=== PATIENT | female | born 1930 | race Caucasian/White ===

== ENCOUNTER 2018-02-23 21:04 | Outpatient (CLI) | payer MEDICARE | END 2018-02-23 21:05 | disposition critical access hospital (66) | LOC: EMS 21:04 | PROVIDERS: ATTEND Surgery | DX: M25.551 Pain in right hip (principal); M79.604 Pain in right leg; W19.XXXA Unspecified fall, initial encounter; Y92.003 Bedroom of unspecified non-institutional (private) residence as the place of occurrence of the external cause | CPT/HCPCS: A0425; A0427 ==

== ENCOUNTER 2018-02-23 21:34 | Inpatient (IN) | payer MEDICARE ==
[2018-02-23] MEDS ORDERED: ACETAMINOPHEN 325 MG TABLET PO PRN (22:19)
[2018-02-23] MEDS ORDERED: SODIUM CHLORIDE FLUSH 0.9% 10 ML SYRINGE IVP PRN (22:19)
[2018-02-23] MEDS ORDERED: ZOLPIDEM 5 MG TABLET PO PRN (22:19)
[2018-02-23] MEDS ORDERED: PROCHLORPERAZINE 10 MG/2 ML VIAL IVP PRN (22:19)
[2018-02-23] MEDS ORDERED: ONDANSETRON 4 MG/2 ML VIAL IVP PRN (22:19)
--- NOTE | 2018-02-23 23:27 | HISTORY & PHYSICAL EXAMINATION ---
Chief Complaint - Chief Complaint Chief Complaint: Right hip pain History of Present Illness - Admitted From Admitted From:: Emergency department - History Obtained From Records Reviewed: Yes History obtained from: Patient Exam Limitations: Very limited range of motion of right hip - History of Present Illness HPI Comment/Other: Patient is a very pleasant 87-year-old female with a past medical history significant for TIA and osteoporosis who presented to the emergency department with a chief complaint of right hip pain. The patient states that she was in her bedroom trying to close a window when she turned to her right and the next thing she knows she had fallen onto her right hip. She states that she immediately felt excruciating pain in her right hip and was unable to get up. The patient states she lives alone but has a life alert around her neck and she pressed the life alert button. She states that she has had falls in the past including a fall in October when she fell in the yard while she was doing yard work and landed on her buttocks. The patient has had multiple surgeries in the past for previous fractures. She has had ankle surgery, left elbow surgery and surgery on her right arm for a humeral fracture. The patient states that she is a smoker and smokes about 8 cigarettes a day. She denies any worsening shortness of breath recently, chest pain, orthopnea or any increased lower extremity swelling. She does not take any prescription medications. She does not believe she has any kidney issues. Patient denies any headaches, dizziness, blurred vision, runny nose, sore throat , nasal congestion, fevers, chills, difficulty swallowing, chest pain, shortness of air, orthopnea, PND, increased lower extremity swelling, abdominal pain, nausea, vomiting, diarrhea, constipation, urinary urgency, urinary frequency, dysuria, back pain, neck stiffness, changes in her appetite, recent unintentional weight loss, skin changes, skin rashes, night sweats, hair loss, polyuria, polydipsia, or any focal neurologic deficits. On presentation to the emergency department the patient was afebrile and very hypertensive and is significant amount of pain. In route to the emergency department the patient had received a dose of fentanyl and on presentation her oxygen saturation was in the low 90s therefore she was placed on 2 L of oxygen but did not appear to be in any respiratory distress. The patient did undergo routine lab work which revealed a creatinine of 1.1 without any previous baseline and a glucose of 167 without any previous baseline. The patient's right leg appeared to be externally rotated and shortened concerning for hip fracture therefore a x-ray of the right hip was ordered by the emergency room physician. The x-ray of the right hip revealed a right intertrochanteric fracture. The patient also underwent a chest x-ray which did not show any acute infiltrates but did show increased lung volumes consistent with COPD. The patient also underwent a right knee x-ray which showed osteopenia and mild degenerative changes but no acute fracture. The emergency room physician spoke with the orthopedic surgeon supervisor inspection and testing who asked that the hospitalist team admit the patient and that he would consult for surgical repair of the right hip. Patient was admitted to the medical rm. 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 She lives alone. She has 4 children and 1 of her daughters lives nearby in [place], [place]. She is originally from [place] and moved here to [facility] 5 years ago. She has been twice and her second 8 years ago so she is now . She is fully independent and performs all of her activities of daily living independently. She has had recent falls and states that she is having trouble with her balance. She has a walker at home but rarely uses it. She states that she smoked from her early 20s up until the time she was about 59 years old and at that time she smoked about half a pack to a pack a day but then quit for 21 years. She states that she started smoking again 8 years ago and now smokes about 8 cigarettes a day. She states that she drinks wine every Saturday. She denies any illicit drug use. - POLST Patient has POLST: Yes POLST Status: DNR Meds/Allgy - Home Medications Home Medications: Ambulatory Orders Medication Instructions Recorded Confirmed Calcium Carbonate [Calcium] 600 mg PO 02/23/18 Cholecalciferol (Vitamin D3) 2,000 unit PO 02/23/18 [Vitamin D] - Allergies Allergies/Adverse Reactions: Allergies Allergy/AdvReac Type Severity Reaction Status Date / Time No Known Drug Allergies Allergy Verified 02/23/18 21:41 Review of Systems - Other Findings Other Findings: A comprehensive review of systems was performed the pertinent positives and negatives are stated above in the HPI and the remainder of the review of systems is negative. Exam - Vital Signs Reviewed Vital Signs: Yes Vital Signs: Vital Signs x48h Temp Pulse Resp BP Pulse Ox 02/23/18 21:36 36.0 C L 67 16 186/120 H 90 L - Physical Exam General Appearance: positive: No acute distress, Alert Eyes Bilateral: positive: Normal inspection, PERRL, EOMI, No lid inflammation, Conjunctivae nml, No scleral icterus ENT: positive: ENT inspection nml, Pharynx nml, Dry mucous membranes. negative : Purulent nasal drainage, Pharyngeal erythema, Oral lesions Neck: positive: Nml inspection, Thyroid nml, No JVD, Trachea midline. negative : Thyromegaly, Lymphadenopathy (R), Lymphadenopathy (L), Carotid bruit, Swelling /bruising Respiratory: positive: Chest non-tender, No respiratory distress, Wheezes ( Scattered wheezes). negative: Rales, Rhonchi Cardiovascular: positive: Regular rate & rhythm, No murmur, No gallop Peripheral Pulses: positive: 2+ Abdomen: positive: Non-tender, No organomegaly, Nml bowel sounds, No distention Back: positive: Nml inspection. negative: CVA tenderness (R), CVA tenderness (L ) Skin: positive: Color nml, No rash, Warm, Dry. negative: Cyanosis, Diaphoresis , Pallor, Skin rash Extremities: positive: No pedal edema, Other (Decreased range of motion around the right hip. Patient's right lower extremity is externally rotated and shortened.) Neurologic/Psychiatric: positive: Oriented x3, CN's nml (2-12), Motor nml, Sensation nml, Mood/affect nml Conclusion/Plan - Problem List (1) Fracture of right hip Conclusion/Plan: Patient presented to the emergency department after a fall on her right hip. She presented with a externally rotated and shortened right hip. X-ray of the right hip revealed a right intertrochanteric fracture. The patient's revised cardiac risk index risk for preoperative risk shows that risk of major cardiac event is 0.4% Plan: Admit patient to medical rm N.p.o. after midnight for surgical repair of hip fracture Orthopedic consult Pain control with IV narcotics IVFs Qualifiers: Encounter type: initial encounter Fracture type: closed Qualified Code(s) : S72.001A - Fracture of unspecified part of neck of right femur, initial encounter for closed fracture (2) Tobacco abuse Conclusion/Plan: Patient has a history of tobacco abuse. She continues to smoke 8 cigarettes a day. Appears on the chest x-ray the patient may have some COPD. The patient denies any shortness of breath but the patient's daughter does state that she is noticed that the patient does have wheezing and a chronic cough. Patient does have some scattered wheezes on examination. Plan: Nicotine patch while patient is hospitalized Patient will need incentive spirometry to help avoid development of pneumonia We will also place the patient on DuoNeb treatments as needed while she is hospitalized. Patient was counseled on adverse effects of smoking and the need to quit. (3) Osteoporosis Conclusion/Plan: Patient has history of osteoporosis with a bone density scan in 2016 showing the fracture risk to be high. The patient is on calcium and vitamin D but no other medications for osteoporosis. Patient will be continued on her vitamin D and calcium and was advised not to smoke cigarettes. She will need to follow-up with her PCP for any further treatment of osteoporosis. Qualifiers: Osteoporosis type: unspecified Presence of current pathological fracture: unspecified Qualified Code(s): M81.0 - Age-related osteoporosis without current pathological fracture (4) Hypertension Conclusion/Plan: On presentation to the emergency department the patient was hypertensive with blood pressure of 186/120. This is likely secondary to pain as the patient was in significant distress when she arrived. Once patient's pain was better controlled patient's blood pressure was down to 127/97. We will need to continue to monitor the patient's blood pressure to ensure that she does not have significant hypertension. If the patient's blood pressure remains high we will need to start a antihypertensive medication. In the meantime we will try to control the patient's pain and monitor her blood pressure. Qualifiers: Hypertension type: unspecified Qualified Code(s): I10 - Essential (primary ) hypertension (5) Hyperglycemia Conclusion/Plan: On presentation to the emergency department the patient's blood glucose was elevated at 167. We did order a hemoglobin A1c which appears to be 6.1. The patient is prediabetic at this time but does not require any treatment with insulin. - Lab Results Lab results reviewed: Yes Fish Bones: 02/23/18 22:50 02/23/18 22:50 Other Lab Results: Laboratory Results WBC 9.9 x10^3/uL (4.8-10.8) 02/23/18 22:50 RBC 4.93 10^6/uL (4.20-5.40) 02/23/18 22:50 Hgb 14.7 g/dL (12.0-16.0) 02/23/18 22:50 Hct 45.0 % (37.0-47.0) 02/23/18 22:50 MCV 91.1 fL (81.0-99.0) 02/23/18 22:50 MCH 29.8 pg (27.0-31.0) 02/23/18 22:50 MCHC 32.7 g/dL (32.0-36.0) 02/23/18 22:50 RDW 14.9 % (12.0-15.0) 02/23/18 22:50 Plt Count 162 10^3/uL (130-450) 02/23/18 22:50 MPV 9.5 fL (7.9-10.8) 02/23/18 22:50 Neut # (Auto) 7.9 10^3/uL (1.5-6.6) H 02/23/18 22:50 Lymph # (Auto) 1.4 10^3/uL (1.5-3.5) L 02/23/18 22:50 Slope # (Auto) 0.5 10^3/uL (0.0-1.0) 02/23/18 22:50 Eos # (Auto) 0.1 10^3/uL (0.0-0.7) 02/23/18 22:50 Baso # (Auto) 0.1 10^3/uL (0.0-0.1) 02/23/18 22:50 Absolute Nucleated RBC 0.01 x10^3/uL 02/23/18 22:50 Nucleated RBC % 0.1 /100WBC 02/23/18 22:50 PT 11.4 secs (9.9-12.6) 02/23/18 22:53 INR 1.0 (0.8-1.2) 02/23/18 22:53 APTT 28.7 secs (24.9-33.3) 02/23/18 22:53 Sodium 137 mmol/L (135-145) 02/23/18 22:50 Potassium 4.1 mmol/L (3.5-5.0) 02/23/18 22:50 Chloride 100 mmol/L (101-111) L 02/23/18 22:50 Carbon Dioxide 26 mmol/L (21-32) 02/23/18 22:50 Anion Gap 11.0 (6-13) 02/23/18 22:50 BUN 25 mg/dL (6-20) H 02/23/18 22:50 Creatinine 1.1 mg/dL (0.4-1.0) H 02/23/18 22:50 Estimated GFR (MDRD) 47 (>89) L 02/23/18 22:50 Glucose 167 mg/dL (70-100) H 02/23/18 22:50 Glycated Hemoglobin 6.1 % (4.6-6.2) 02/23/18 22:53 Estim Average Glucose 128 (70-100) H 02/23/18 22:53 Calcium 8.9 mg/dL (8.5-10.3) 02/23/18 22:50 Total Bilirubin 0.5 mg/dL (0.2-1.0) 02/23/18 22:50 AST 26 IU/L (10-42) 02/23/18 22:50 ALT 17 IU/L (10-60) 02/23/18 22:50 Alkaline Phosphatase 83 IU/L (42-121) 02/23/18 22:50 Total Protein 7.3 g/dL (6.7-8.2) 02/23/18 22:50 Albumin 3.7 g/dL (3.2-5.5) 02/23/18 22:50 Globulin 3.6 g/dL (2.1-4.2) 02/23/18 22:50 Albumin/Globulin Ratio 1.0 (1.0-2.2) 02/23/18 22:50 Lipase 31 U/L (22-51) 02/23/18 22:50 Blood Type O POSITIVE 02/24/18 01:29 Antibody Screen NEGATIVE 02/24/18 01:29 - Diagnostic Imaging Results Diagnostic Imaging Results: positive: Final report reviewed, Read independently Diagnostic Imaging Results Comments: EXAM: [id number] ([id number]) Procedure Date: 02/24/2018 Accession Number: [id number] / [id number] Procedure: XR - Knee 2 View RT CPT Code: FULL RESULT: EXAM: RIGHT KNEE RADIOGRAPHY EXAM DATE: 02/24/2018 12:47 AM. CLINICAL HISTORY: Right knee pain, post fall. COMPARISON: None. TECHNIQUE: 2 views. FINDINGS: Bones: Osteopenia. No acute fracture seen. Joints: No dislocation. Mild 3 compartment degenerative joint disease. No joint effusion identified. Soft Tissues: Mild soft tissue swelling. Vascular calcifications. IMPRESSION: 1. Osteopenia and mild degenerative changes. 2. No acute fracture or dislocation seen. X-ray of the right hip shows a intertrochanteric hip fracture Chest x-ray reveals hyperinflation of the lungs consistent with COPD otherwise no acute process is seen - EKG Results EKG Interpreted Independently: Yes Core Measures - Anticipated LOS I expect patient to be DC'd or transferred within 96 hours.: Yes - DVT/VTE - Prophylaxis VTE/DVT Device ordered at admit?: Yes
[2018-02-23 23:30] LABS: HGB - HEMOGLOBIN 14.7 g/dL (12.0-16.0); MEAN CORPUSCULAR HEMOGLOBIN 29.8 pg (27.0-31.0); MEAN CORPUSCULAR HGB CONC 32.7 g/dL (32.0-36.0); MEAN CORPUSCULAR VOLUME 91.1 fL (81.0-99.0); RED BLOOD COUNT 4.93 10^6/uL (4.20-5.40); WHITE BLOOD COUNT 9.9 x10^3/uL (4.8-10.8)
[2018-02-23 23:31] LABS: BASOPHILS # (AUTO) 0.1 10^3/uL (0.0-0.1); BASOPHILS % (AUTO) 0.8 %; EOSINOPHILS # (AUTO) 0.1 10^3/uL (0.0-0.7); EOSINOPHILS % (AUTO) 0.7 %; LYMPHOCYTES # (AUTO) 1.4 10^3/uL (1.5-3.5); LYMPHOCYTES % (AUTO) 14.5 %; MEAN PLATELET VOLUME 9.5 fL (7.9-10.8); MONOCYTES # (AUTO) 0.5 10^3/uL (0.0-1.0); MONOCYTES % (AUTO) 4.9 %; NEUTROPHILS # (AUTO) 7.9 10^3/uL (1.5-6.6); NEUTROPHILS % (AUTO) 79.1 %; PLT - PLATELET COUNT 162 10^3/uL (130-450); RED CELL DISTRIBUTION WIDTH 14.9 % (12.0-15.0)
[2018-02-23] MEDS ORDERED: NICOTINE 14 MG PATCH TOP STA (23:31)
[2018-02-23 23:37] LABS: ALBUMIN 3.7 g/dL (3.2-5.5); BILIRUBIN,TOTAL 0.5 mg/dL (0.2-1.0); CALCIUM 8.9 mg/dL (8.5-10.3); CREATININE 1.1 mg/dL (0.4-1.0); TOTAL PROTEIN 7.3 g/dL (6.7-8.2)
[2018-02-23] MEDS ORDERED: fentaNYL 100 MCG/2 ML VIAL IVP STA (23:42)
[2018-02-23 23:49] LABS: PT - PROTHROMBIN TIME 11.4 secs (9.9-12.6)
--- NOTE | 2018-02-24 00:09 | ED Physician Documentation ---
PD HPI Fall - Stated complaint Stated Complaint: GLF - POSS HIP RIGHT FX - Chief complaint Chief Complaint: Trauma Ext - History obtained from History obtained from: Patient, EMS - History of Present Illness Mechanism of injury: Slipped Fall distance: Standing position Where injury occurred: Home Timing - onset: Today Injury(ies) location: Right Lower Extremity Quality of pain: Pain Associated symptoms: No: LOC, AMS Similar symptoms before: Has not had sx before Recently seen: Not recently seen - Additional information Additional information: Patient is an 87 year old female who was brought in by ems for right sided hip pain after falling. patient states that she was trying to close her blinds and she was walking around the couch and tripped and fell landing on her right hip. Upon initial evaluation in the emergency department patient had severe hip pain and her leg was shortened and externally rotated. Review of Systems Ten Systems: 10 systems reviewed and negative Musculoskeletal: reports: Extremity pain, Joint pain, Extremity swelling, Joint swelling PD PAST MEDICAL HISTORY - Past Medical History Past Medical History: Yes Cardiovascular: None Neuro: TIA : Incontinence Musculoskeletal: Osteoporosis - Past Surgical History Past Surgical History: Yes Ortho: Other - Present Medications Home Medications: Ambulatory Orders Medication Instructions Recorded Confirmed Calcium Carbonate [Calcium] 600 mg PO 02/23/18 Cholecalciferol (Vitamin D3) 2,000 unit PO 02/23/18 [Vitamin D] - Allergies Allergies/Adverse Reactions: Allergies Allergy/AdvReac Type Severity Reaction Status Date / Time No Known Drug Allergies Allergy Verified 02/23/18 21:41 - Social History Does the pt smoke?: No Smoking Status: Never smoker Does the pt drink ETOH?: Yes Substance Use and Type: Marijuana - Immunizations Immunizations are current?: Yes - POLST Patient has POLST: Yes PD ED PE NORMAL - Vitals Vital signs reviewed: Yes - General General: Alert and oriented X 3 - HEENT HEENT: Atraumatic - Cardiac Cardiac: RRR - Abdomen Abdomen: Soft - Neuro Neuro: Alert and oriented X 3, surgical instrument maker 2-12 intact Eye Opening: Spontaneous PD ED PE EXPANDED - General General: Alert, In Pain - Extremities Extremities: Right hip (tenderness over right hip, shortened and externally rotated ) Results - Vitals Vitals: Vital Signs - 24 hr 02/23/18 21:36 Temperature 36.0 C L Heart Rate 67 Respiratory 16 Rate Blood Pressure 186/120 H O2 Saturation 90 L Oxygen O2 Source Room air - Rads (name of study) right hip Radiology: Final report received (intertrochanteric fracture) PD MEDICAL DECISION MAKING - ED course Complexity details: reviewed old records, reviewed results, re-evaluated patient , considered differential, d/w patient ED course: Patient was seen and examined at bedside. Patient was sent for imaging. when patient returned from imaging the results were reviewed. patient had an intertrochanteric fracture. Case was discussed with construction and maintenance inspector orthopedist and hospitalist. patient was to be admitted to hospitalist and orthopedist would consult on the patient. Patient was treated with fentanyl for pain and admitted in stable condition. - Sepsis Event Vital Signs: Vital Signs - 24 hr 02/23/18 21:36 Temperature 36.0 C L Heart Rate 67 Respiratory 16 Rate Blood Pressure 186/120 H O2 Saturation 90 L Oxygen O2 Source Room air Departure - Departure Disposition: [facility] DC/Xfer
[2018-02-24 00:28] LABS: HB2 TOTAL 16.3 g/dL; HEMOGLOBIN A1C 0.7 g/dL; HEMOGLOBIN A1C % 6.1 % (4.6-6.2)
[2018-02-24] MEDS ORDERED: MORPHINE 10 MG/ML VIAL IVP STA (00:51)
--- NOTE | 2018-02-24 01:08 | XRAY Report ---
Procedure Date: 02/24/2018 Accession Number: [id number] / [id number] Procedure: XR - Knee 2 View RT CPT Code: FULL RESULT: EXAM: RIGHT KNEE RADIOGRAPHY EXAM DATE: 02/24/2018 12:47 AM. CLINICAL HISTORY: Right knee pain, post fall. COMPARISON: None. TECHNIQUE: 2 views. FINDINGS: Bones: Osteopenia. No acute fracture seen. Joints: No dislocation. Mild 3 compartment degenerative joint disease. No joint effusion identified. Soft Tissues: Mild soft tissue swelling. Vascular calcifications. IMPRESSION: 1. Osteopenia and mild degenerative changes. 2. No acute fracture or dislocation seen. RADIA
[2018-02-24] MEDS: SODIUM CHLORIDE 0.9% 1,000 ML IV SCH ×3 (02:12→17:54)
[2018-02-24] MEDS: SODIUM CHLORIDE FLUSH 0.9% 10 ML SYRINGE IVP SCH ×3 (02:12→17:54)
[2018-02-24] MEDS ORDERED: IPRATROPIUM/ALBUTEROL 3 ML NEB INH PRN (02:35)
--- NOTE | 2018-02-24 03:23 | XRAY Report ---
Procedure Date: 02/23/2018 Accession Number: [id number] / [id number] Procedure: XR - Hip w/Pelvis 2-3V RT CPT Code: FULL RESULT: EXAM: RIGHT HIP AND PELVIS RADIOGRAPHY EXAM DATE: 02/23/2018 10:19 PM. HISTORY: Right hip pain after injury. COMPARISONS: None. TECHNIQUE: 1 view of the pelvis and 1 view of the hip. FINDINGS: Bones: Osteopenia. Mildly comminuted intertrochanteric right hip fracture. Joints: No dislocation seen. Severe degenerative joint disease in the right hip. Soft Tissues: Vascular calcifications. IMPRESSION: 1. Osteopenia with mildly comminuted intertrochanteric right hip fracture. 2. Severe degenerative joint disease in the right hip. RADIA
--- NOTE | 2018-02-24 03:23 | XRAY Report ---
Procedure Date: 02/23/2018 Accession Number: [id number] / [id number] Procedure: XR - Chest 1 View X-Ray CPT Code: 88365 FULL RESULT: EXAM: CHEST RADIOGRAPHY EXAM DATE: 02/23/2018 10:37 PM. CLINICAL HISTORY: Hip fracture. Preoperative exam for fracture repair. COMPARISON: None. TECHNIQUE: 1 view. FINDINGS: Lungs/Pleura: No alveolar consolidation or pleural effusion seen. No pneumothorax. Mediastinum: Within exam limitations, heart size appears normal. Tortuous atherosclerotic aorta. Other: Osteopenia. Old rib fractures. Severe chronic-appearing deformity in the right shoulder. Degenerative joint disease in the left shoulder. IMPRESSION: 1. No acute cardiopulmonary abnormality. RADIA
[2018-02-24] MEDS: MORPHINE 2 MG/ML SYRINGE IVP PRN ×3 (03:33→09:04)
[2018-02-24 05:59] LABS: INR 1.1 (0.8-1.2); PT - PROTHROMBIN TIME 11.9 secs (9.9-12.6)
[2018-02-24 06:11] LABS: ALBUMIN 3.1 g/dL (3.2-5.5); ALBUMIN/GLOBULIN RATIO 0.9 (1.0-2.2); BILIRUBIN,TOTAL 0.4 mg/dL (0.2-1.0); CALCIUM 8.9 mg/dL (8.5-10.3); CREATININE 1.1 mg/dL (0.4-1.0); MAGNESIUM 1.6 mg/dL (1.7-2.8); PHOSPHORUS 3.3 mg/dL (2.5-4.6); TOTAL PROTEIN 6.5 g/dL (6.7-8.2)
[2018-02-24] MEDS ORDERED: FAMOTIDINE 20 MG TABLET PO SCH (09:00)
[2018-02-24] MEDS ORDERED: FAMOTIDINE 20 MG/50 ML 50 ML IV SCH (09:00)
[2018-02-24] MEDS: POLYETHYLENE GLYCOL 3350 17 GM PACKET PO SCH (09:02)
[2018-02-24] MEDS ORDERED: LACTATED RINGERS 1,000 ML IV ONE ×3 (09:47→11:58)
[2018-02-24] MEDS ORDERED: ceFAZolin 2 GM/50 ML 2 GM/50 ML BAG IV ONE (09:59)
[2018-02-24] MEDS: ceFAZolin 2 GM/50 ML 2 GM/50 ML BAG IV SCH ×2 (10:44→17:54)
[2018-02-24] MEDS ORDERED: ePHEDrine 50 MG/ML AMP IVP ONE (10:48)
[2018-02-24] MEDS ORDERED: ROCURONIUM 50 MG/5 ML VIAL IVP ONE (10:48)
[2018-02-24] MEDS ORDERED: LIDOCAINE-PF 4% 5 ML AMP SUBQ ONE (10:48)
[2018-02-24] MEDS ORDERED: GLYCOPYRROLATE 1 MG/5 ML VIAL IVP ONE (10:48)
[2018-02-24] MEDS ORDERED: MORPHINE 10 MG/ML VIAL IVP ONE (10:48)
[2018-02-24] MEDS ORDERED: ONDANSETRON 4 MG/2 ML VIAL IVP ONE (10:48)
[2018-02-24] MEDS ORDERED: PROPOFOL 200 MG/20 ML VIAL IVP ONE (10:48)
--- NOTE | 2018-02-24 12:00 | CONSULTATION NOTE ---
DATE OF SERVICE: 02/24/2018 Physician: Martin Michel MD CHIEF COMPLAINT: Pain in the right hip, inability to walk. HISTORY OF PRESENT ILLNESS: This 87-year-old woman was standing at a window in her house, turned around suddenly, and lost her balance and fell. She remembers falling through the air and hitting the ground. She was unable to get up and walk after that and was transported to our emergency room, where a diagnosis was made of right intertrochanteric hip fracture, and she has been admitted for that problem. Prior to falling, she was an independent ambulator not requiring the use of any walking aids. ALLERGIES: NONE KNOWN. PAST MEDICAL HISTORY: She had a peptic ulcer in the , and was treated with a medication for 2 weeks, and has not required treatment again. She has a past possible TIA, but with low enough suspicion that she was not put on aspirin. PAST SURGICAL HISTORY Includes: 1. A left elbow ORIF, and then a second left elbow ORIF. 2. Right ankle ORIF with plate and screws. 3. Right shoulder fracture which, was not surgically fixed, but resulted in painfully limited abduction and forward flexion. 4. Appendectomy. 5. Cystoscopy and correction of drainage of ureteropelvic junction stenosis, with no treatment required after that surgery. REVIEW OF SYSTEMS She denies seizure, and she has had episodes of syncope from vagal response when she was frightened of going to the dentist. She had a questionable TIA in the past. CARDIAC: She denies irregular heartbeat, palpitations, valvular heart disease, chest pain on exertion, congestive heart failure, lungs filling with fluid, high blood pressure. PULMONARY: She denies asthma, tuberculosis, pneumonia, or sleep apnea. GASTROINTESTINAL: She denies hepatitis, pancreatitis, colitis. She did have a history of ulcer in the , which required only 2 weeks of treatment, and did not reoccur. 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 She denies kidney failure, kidney stones, or kidney infection. ENDOCRINE: She denies diabetes or thyroid disease. SOCIAL HISTORY: She smokes 1/2 a pack per day since 1999. She did not smoke for 20 years from [id number]. She does not regularly drink alcoholic beverages. She lives by herself in a mobile home, which has a ramp leading up to the door. FAMILY HISTORY: Noncontributory. PHYSICAL EXAMINATION HEENT: Her head is normocephalic, atraumatic. The neck is painlessly supple. HEART: Has a grade II/ systolic murmur best heard in the right upper sternal border. The heart is occasionally irregular. LUNGS: Clear to auscultation, and have normal breath sounds. The abdomen is without tenderness or masses. EXTREMITIES: The right leg has no palpable pulse, but on Doppler, there is a barely audible monophasic dorsalis pedis. The left foot does not have palpable pulses. The right leg is shortened and externally rotated. There is moderate tenderness in her calves. The posterior medial left knee is tender, which prompted a knee x-ray. The wrists and fingers move well. The right shoulder can forward flex to only 60 degrees, and that causes pain. The left shoulder motion is not limited. The right elbow moves normally. The left elbow has a scar extending along the posterior ulna onto the proximal humerus. There is motion of 35 degrees to 120 degrees. The left hip and knee are painless. The feet and ankles are painless to going hand over hand palpation, until I reach the right knee, where there is posterior medial tenderness. X-RAYS The right hip has an intertrochanteric fracture, displaced in varus. The pelvis is otherwise intact. The right hip has diminished joint space and sclerosis of the femoral and acetabular subchondral bones, indicating severe arthritis. The AP and lateral knee x-ray appears normal. LABORATORY DATA: Hemoglobin is 14; platelet count is 160,000; white count less than 10,000 and normal. IMPRESSION: The patient has been evaluated medically, and chest x-ray and EKG were reviewed by the medical doctor. I am not qualified to interpret these studies based on my orthopedic training. Medical doctor has felt the patient is stable for surgical intervention. 1. Right intertrochanteric hip fracture, displaced. 2. Advanced age, elevated blood sugar. PLAN: I explained the risks and benefits of the surgery versus no surgery to the patient and her daughter, including the risk of , stroke, heart attack. I will go ahead with the surgery today, as the patient and her daughter have given consent. TD: 02/24/2018 09:32
--- NOTE | 2018-02-24 12:39 | XRAY Report ---
Procedure Date: 02/24/2018 Accession Number: [id number] / [id number] Procedure: FL - OR C-Arm Procedure CPT Code: FULL RESULT: EXAM: OR C-Arm Procedure DATE: 02/24/2018 12:01 PM CLINICAL HISTORY: RIGHT HIP FRACTURE Please see right hip films same day.
--- NOTE | 2018-02-24 13:01 | OPERATIVE REPORT ---
Operative Report - General Admit Date: 02/23/18 Procedure Date: 02/24/18 Planned Procedure: ORIF right intertrochanteric hip with intramedullary dirk and lag screw Pre-Op Diagnosis: closed right intertrochanteric hip fracture Post Op Diagnosis: same - Procedure Note Anesthesia Technique: General ET tube IV Fluids (mL): 1,500 Estimated Blood Loss (mL): 250 Urine Output (mL): 100 - Other Other Information/Narrative: complications none left OR in stable condition
[2018-02-24] MEDS ORDERED: ACETAMINOPHEN 325 MG TABLET PO PRN (13:24)
[2018-02-24] MEDS ORDERED: ONDANSETRON 4 MG/2 ML VIAL IVP PRN (13:24)
[2018-02-24] MEDS ORDERED: ceFAZolin 2 GM/50 ML 50 ML IV SCH (13:30)
--- NOTE | 2018-02-24 13:58 | OPERATIVE REPORT ---
DATE OF SERVICE: 02/24/2018 Physician: Martin Michel MD PREOPERATIVE DIAGNOSIS: Right intertrochanteric hip fracture. POSTOPERATIVE DIAGNOSIS: Right intertrochanteric hip fracture. PROCEDURE: Open reduction internal fixation of a closed right intertrochanteric hip fracture with an intramedullary dirk and interlocking lag screw and distal locking screw. ANESTHESIA: General by endotracheal tube. SURGEON: Martin Michel MD CARETAKER RESORT: None. ESTIMATED BLOOD LOSS: 250 mL. IV FLUIDS: 1500 lactated Ringer's. URINE OUTPUT: 100 mL. SPECIMENS: None. DRAINS: None. COMPLICATIONS: None; the patient tolerated the procedure well. PROCEDURE DETAILS: This 87-year-old woman had been seen in the emergency room and informed consent given to the patient and her daughter for treatment of a closed right hip intertrochanteric fracture. After the patient was medically cleared, she was brought to the operating room. She was laid in the supine position on the fracture table and general anesthesia was induced. A timeout was held. All present agreed that the patient was as identified on her armband and that the correct site of surgery was the hip, the side of surgery was the right, and the surgery was to be open reduction internal fixation of the right hip. The right leg was placed in traction, and the left leg was held up on the leg barbosa, which was padded. The patient had been administered 2 grams of Ancef just before the start of the operative procedure. The right hip was sterilely prepped, painted, and draped, with the image intensifier sterilely draped. A marking pen was used to chuckie off the level of the greater trochanter tip and the line of the femoral shaft. A 5 cm longitudinal incision was made in the skin and subcutaneous tissue superior to the tip of the trochanter, and the fascia of the gluteus was divided. With the sterile finger, the tip of the trochanter was identified and, with x-ray confirmation on AP and lateral, a guidewire was placed into the proximal femoral shaft through the tip of the greater trochanter. This was used to guide a 15 mm reamer for the proximal end of the nail. The 15 mm diameter reamer was viewed on the image and seen to not fill the canal. The canal was reamed to 14 mm, and a 13 mm distal diameter intramedullary dirk was put into place. The dirk was adjusted for proximal and distal position and anteversion and retroversion. A guidewire was placed in the femoral neck and head using the guide jig attached to the top of the dirk. When satisfactory position was confirmed on x-ray, it was used to measure for depth and the lag screw path was reamed out over the guidewire. The lag screw was screwed up into position, monitoring on image intensifier. When it was in satisfactory position, a proximal x-ray was taken, AP and lateral , and found to be satisfactory. The distal interlocking screw was placed with the guide jig 's help. A 40 mm long, 5 mm cortical distal interlocking screw was screwed through the dirk and femur. AP and lateral images were taken of the assembly proximally and distally and found to be satisfactory. The proximal locking screw was placed down into the superior end of the intramedullary dirk, tightened down and then backed off a quarter of a turn to allow dynamizing of the fracture fragments. The wound was irrigated out. Final hemostasis was obtained with electrocautery. The gluteus fascia was closed with 0 Vicryl and the subcutaneous tissue with 2- 0 subcutaneous. The puncture wounds for the lag screw and distal interlocking screw were closed with angelica. The proximal incision above the greater trochanter was closed with angelica as well. A sterile dressing was placed upon the wound, and the patient awakened and brought from the operating room in good condition. TD: 02/24/2018 13:31 MAGALY
--- NOTE | 2018-02-24 17:05 | PROVIDER PROGRESS NOTE ---
Subjective - Prog Note Date Prog Note Date: 02/24/18 Prog Note Time: 17:00 - Subjective Pt reports feeling: Improved (No chest pain or shortness of breath. Pain controlled.) Current Medications - Current Medications Current Medications: alert and oriented. neurovascular status as pre-op with no palpable pedal pulses. Objective - Vital Signs/Intake & Output Vital Signs: Vital Signs x48h Temp Pulse Resp BP Pulse Ox 02/24/18 15:25 36.3 C L 83 18 110/60 96 02/24/18 13:55 80 15 114/70 95 02/24/18 13:25 85 16 104/66 94 02/24/18 13:19 36.0 C L 86 14 142/74 H 96 02/24/18 12:55 98 02/24/18 12:50 100 02/24/18 12:45 100 02/24/18 12:40 100 02/24/18 12:35 100 02/24/18 12:30 100 02/24/18 12:25 99 Intake & Output: Intake & Output 02/21/18 02/22/18 02/23/18 02/24/18 23:59 23:59 23:59 23:59 Intake Total 1050 Output Total 510 Balance 540 - Objective General Appearance: positive: No acute distress Peripheral Pulses: 0 Dorsalis pedis (R), 0 Dorsalis pedis (L) - Lab Results Fish Bones: 02/23/18 22:50 02/24/18 05:22 Other Labs: Lab Results x24hrs 02/24/18 02/24/18 02/24/18 Range/Units 05:22 05:22 01:29 WBC (4.8-10.8) x10^3/uL RBC (4.20-5.40) 10^6/uL Hgb (12.0-16.0) g/dL Hct (37.0-47.0) % MCV (81.0-99.0) fL MCH (27.0-31.0) pg MCHC (32.0-36.0) g/dL RDW (12.0-15.0) % Plt Count (130-450) 10^3/uL MPV (7.9-10.8) fL Neut # (Auto) (1.5-6.6) 10^3/uL Lymph # (Auto) (1.5-3.5) 10^3/uL [place] # (Auto) (0.0-1.0) 10^3/uL Eos # (Auto) (0.0-0.7) 10^3/uL Baso # (Auto) (0.0-0.1) 10^3/uL Absolute Nucleated RBC x10^3/uL Nucleated RBC % /100WBC PT 11.9 (9.9-12.6) secs INR 1.1 (0.8-1.2) APTT (24.9-33.3) secs Sodium 142 (135-145) mmol/L Potassium 4.5 (3.5-5.0) mmol/L Chloride 108 (101-111) mmol/L Carbon Dioxide 26 (21-32) mmol/L Anion Gap 8.0 (6-13) BUN 26 H (6-20) mg/dL Creatinine 1.1 H (0.4-1.0) mg/dL Estimated GFR (MDRD) 47 L (>89) Glucose 185 H (70-100) mg/dL Glycated Hemoglobin (4.6-6.2) % Estim Average Glucose (70-100) Calcium 8.9 (8.5-10.3) mg/dL Phosphorus 3.3 (2.5-4.6) mg/dL Magnesium 1.6 L (1.7-2.8) mg/dL Total Bilirubin 0.4 (0.2-1.0) mg/dL AST 28 (10-42) IU/L ALT 16 (10-60) IU/L Alkaline Phosphatase 73 (42-121) IU/L Total Protein 6.5 L (6.7-8.2) g/dL Albumin 3.1 L (3.2-5.5) g/dL Globulin 3.4 (2.1-4.2) g/dL Albumin/Globulin Ratio 0.9 L (1.0-2.2) Lipase (22-51) U/L Blood Type O POSITIVE Blood Type Recheck Antibody Screen NEGATIVE 02/23/18 02/23/18 02/23/18 Range/Units 22:53 22:53 22:53 WBC (4.8-10.8) x10^3/uL RBC (4.20-5.40) 10^6/uL Hgb (12.0-16.0) g/dL Hct (37.0-47.0) % MCV (81.0-99.0) fL MCH (27.0-31.0) pg MCHC (32.0-36.0) g/dL RDW (12.0-15.0) % Plt Count (130-450) 10^3/uL MPV (7.9-10.8) fL Neut # (Auto) (1.5-6.6) 10^3/uL Lymph # (Auto) (1.5-3.5) 10^3/uL [place] # (Auto) (0.0-1.0) 10^3/uL Eos # (Auto) (0.0-0.7) 10^3/uL Baso # (Auto) (0.0-0.1) 10^3/uL Absolute Nucleated RBC x10^3/uL Nucleated RBC % /100WBC PT 11.4 (9.9-12.6) secs INR 1.0 (0.8-1.2) APTT 28.7 (24.9-33.3) secs Sodium (135-145) mmol/L Potassium (3.5-5.0) mmol/L Chloride (101-111) mmol/L Carbon Dioxide (21-32) mmol/L Anion Gap (6-13) BUN (6-20) mg/dL Creatinine (0.4-1.0) mg/dL Estimated GFR (MDRD) (>89) Glucose (70-100) mg/dL Glycated Hemoglobin 6.1 (4.6-6.2) % Estim Average Glucose 128 H (70-100) Calcium (8.5-10.3) mg/dL Phosphorus (2.5-4.6) mg/dL Magnesium (1.7-2.8) mg/dL Total Bilirubin (0.2-1.0) mg/dL AST (10-42) IU/L ALT (10-60) IU/L Alkaline Phosphatase (42-121) IU/L Total Protein (6.7-8.2) g/dL Albumin (3.2-5.5) g/dL Globulin (2.1-4.2) g/dL Albumin/Globulin Ratio (1.0-2.2) Lipase (22-51) U/L Blood Type Blood Type Recheck O POSITIVE Antibody Screen 02/23/18 02/23/18 Range/Units 22:50 22:50 WBC 9.9 (4.8-10.8) x10^3/uL RBC 4.93 (4.20-5.40) 10^6/uL Hgb 14.7 (12.0-16.0) g/dL Hct 45.0 (37.0-47.0) % MCV 91.1 (81.0-99.0) fL MCH 29.8 (27.0-31.0) pg MCHC 32.7 (32.0-36.0) g/dL RDW 14.9 (12.0-15.0) % Plt Count 162 (130-450) 10^3/uL MPV 9.5 (7.9-10.8) fL Neut # (Auto) 7.9 H (1.5-6.6) 10^3/uL Lymph # (Auto) 1.4 L (1.5-3.5) 10^3/uL [place] # (Auto) 0.5 (0.0-1.0) 10^3/uL Eos # (Auto) 0.1 (0.0-0.7) 10^3/uL Baso # (Auto) 0.1 (0.0-0.1) 10^3/uL Absolute Nucleated RBC 0.01 x10^3/uL Nucleated RBC % 0.1 /100WBC PT (9.9-12.6) secs INR (0.8-1.2) APTT (24.9-33.3) secs Sodium 137 (135-145) mmol/L Potassium 4.1 (3.5-5.0) mmol/L Chloride 100 L (101-111) mmol/L Carbon Dioxide 26 (21-32) mmol/L Anion Gap 11.0 (6-13) BUN 25 H (6-20) mg/dL Creatinine 1.1 H (0.4-1.0) mg/dL Estimated GFR (MDRD) 47 L (>89) Glucose 167 H (70-100) mg/dL Glycated Hemoglobin (4.6-6.2) % Estim Average Glucose (70-100) Calcium 8.9 (8.5-10.3) mg/dL Phosphorus (2.5-4.6) mg/dL Magnesium (1.7-2.8) mg/dL Total Bilirubin 0.5 (0.2-1.0) mg/dL AST 26 (10-42) IU/L ALT 17 (10-60) IU/L Alkaline Phosphatase 83 (42-121) IU/L Total Protein 7.3 (6.7-8.2) g/dL Albumin 3.7 (3.2-5.5) g/dL Globulin 3.6 (2.1-4.2) g/dL Albumin/Globulin Ratio 1.0 (1.0-2.2) Lipase 31 (22-51) U/L Blood Type Blood Type Recheck Antibody Screen - Diagnostic Imaging Diagnostic Imaging Results: positive: Final report reviewed (I reviewed the final images taken with the flouroscope in the OR)
[2018-02-25] MEDS: SODIUM CHLORIDE FLUSH 0.9% 10 ML SYRINGE IVP SCH ×3 (01:32→16:50)
[2018-02-25] MEDS: ceFAZolin 2 GM/50 ML 2 GM/50 ML BAG IV SCH (02:02)
[2018-02-25] MEDS: SODIUM CHLORIDE 0.9% 1,000 ML IV SCH ×3 (04:15→20:15)
[2018-02-25 05:17] LABS: BASOPHILS # (AUTO) 0.1 10^3/uL (0.0-0.1); BASOPHILS % (AUTO) 0.7 %; EOSINOPHILS # (AUTO) 0.1 10^3/uL (0.0-0.7); HGB - HEMOGLOBIN 10.6 g/dL (12.0-16.0); LYMPHOCYTES # (AUTO) 1.6 10^3/uL (1.5-3.5); LYMPHOCYTES % (AUTO) 17.4 %; MEAN CORPUSCULAR HEMOGLOBIN 30.4 pg (27.0-31.0); MEAN CORPUSCULAR HGB CONC 32.9 g/dL (32.0-36.0); MEAN CORPUSCULAR VOLUME 92.4 fL (81.0-99.0); MEAN PLATELET VOLUME 9.4 fL (7.9-10.8); MONOCYTES % (AUTO) 10.7 %; NEUTROPHILS # (AUTO) 6.3 10^3/uL (1.5-6.6); NEUTROPHILS % (AUTO) 70.2 %; PLT - PLATELET COUNT 133 10^3/uL (130-450); RED BLOOD COUNT 3.48 10^6/uL (4.20-5.40); RED CELL DISTRIBUTION WIDTH 14.7 % (12.0-15.0)
[2018-02-25 05:25] LABS: ALBUMIN 2.6 g/dL (3.2-5.5); ALBUMIN/GLOBULIN RATIO 0.9 (1.0-2.2); BILIRUBIN,TOTAL 0.2 mg/dL (0.2-1.0); CREATININE 0.9 mg/dL (0.4-1.0); MAGNESIUM 1.6 mg/dL (1.7-2.8); PHOSPHORUS 3.5 mg/dL (2.5-4.6); TOTAL PROTEIN 5.4 g/dL (6.7-8.2)
[2018-02-25] MEDS: ACETAMINOPHEN 1,000 MG/100 ML 100 ML IV PRN (06:22)
--- NOTE | 2018-02-25 07:52 | PROVIDER PROGRESS NOTE ---
Subjective - Prog Note Date Prog Note Date: 02/25/18 Prog Note Time: 07:40 - Subjective Pt reports feeling: Improved (No chest pain. Hip pain is controlled at rest.) Objective - Vital Signs/Intake & Output Vital Signs: Vital Signs x48h Temp Pulse Resp BP Pulse Ox 02/25/18 05:14 36.9 C 88 18 122/56 L 95 02/25/18 00:00 36.7 C 93 18 106/61 94 Intake & Output: Intake & Output 02/22/18 02/23/18 02/24/18 02/25/18 23:59 23:59 23:59 23:59 Intake Total 1450 1100 Output Total 835 375 Balance 615 725 - Objective General Appearance: positive: No acute distress, Alert Peripheral Pulses: 0 Dorsalis pedis (R), 0 Dorsalis pedis (L) Extremities: positive: No pedal edema. negative: Calf tenderness - Lab Results Fish Bones: 02/25/18 04:56 02/25/18 04:56 Other Labs: Lab Results x24hrs 02/25/18 02/25/18 02/23/18 Range/Units 04:56 04:56 22:53 WBC 9.0 (4.8-10.8) x10^3/uL RBC 3.48 L (4.20-5.40) 10^6/uL Hgb 10.6 L (12.0-16.0) g/dL Hct 32.1 L (37.0-47.0) % MCV 92.4 (81.0-99.0) fL MCH 30.4 (27.0-31.0) pg MCHC 32.9 (32.0-36.0) g/dL RDW 14.7 (12.0-15.0) % Plt Count 133 (130-450) 10^3/uL MPV 9.4 (7.9-10.8) fL Neut # (Auto) 6.3 (1.5-6.6) 10^3/uL Lymph # (Auto) 1.6 (1.5-3.5) 10^3/uL [place] # (Auto) 1.0 (0.0-1.0) 10^3/uL Eos # (Auto) 0.1 (0.0-0.7) 10^3/uL Baso # (Auto) 0.1 (0.0-0.1) 10^3/uL Absolute Nucleated RBC 0.00 x10^3/uL Nucleated RBC % 0.0 /100WBC Sodium 140 (135-145) mmol/L Potassium 4.6 (3.5-5.0) mmol/L Chloride 108 (101-111) mmol/L Carbon Dioxide 26 (21-32) mmol/L Anion Gap 6.0 (6-13) BUN 23 H (6-20) mg/dL Creatinine 0.9 (0.4-1.0) mg/dL Estimated GFR (MDRD) 59 L (>89) Glucose 148 H (70-100) mg/dL Calcium 8.0 L (8.5-10.3) mg/dL Phosphorus 3.5 (2.5-4.6) mg/dL Magnesium 1.6 L (1.7-2.8) mg/dL Total Bilirubin 0.2 (0.2-1.0) mg/dL AST 21 (10-42) IU/L ALT 12 (10-60) IU/L Alkaline Phosphatase 66 (42-121) IU/L Total Protein 5.4 L (6.7-8.2) g/dL Albumin 2.6 L (3.2-5.5) g/dL Globulin 2.8 (2.1-4.2) g/dL Albumin/Globulin Ratio 0.9 L (1.0-2.2) Blood Type Recheck O POSITIVE - Diagnostic Imaging Diagnostic Imaging Results: positive: Read independently
[2018-02-25] MEDS ORDERED: MAGNESIUM SULFATE 1 GM in SODIUM CHLORIDE 0.9% 50 ML IV ONE (08:17)
[2018-02-25] MEDS: FAMOTIDINE 20 MG TABLET PO SCH (09:10)
[2018-02-25] MEDS: NICOTINE 14 MG PATCH TOP SCH (09:10)
[2018-02-25] MEDS: ENOXAPARIN 30 MG/0.3 ML SYRINGE SUBQ SCH (09:10)
[2018-02-25] MEDS: POLYETHYLENE GLYCOL 3350 17 GM PACKET PO SCH (09:11)
--- NOTE | 2018-02-25 09:22 | XRAY Report ---
Procedure Date: 02/24/2018 Accession Number: [id number] / [id number] Procedure: XR - Hip w/Pelvis 1V RT CPT Code: FULL RESULT: EXAM: Hip w/Pelvis 1V RT DATE: 02/24/2018 12:01 PM CLINICAL HISTORY: RIGHT HIP FRACTURE COMPARISON: 02/23/2018 TECHNIQUE: Intraoperative images of the right hip. FINDINGS: 55 seconds of fluoroscopy was provided to Dr. Gilmore. 5 spot images were obtained. Intraoperative imaging demonstrates dynamic compression screw and short IM dirk fixation of the right intertrochanteric fracture. IMPRESSION: Intraoperative imaging of right hip fracture fixation. RADIA
[2018-02-25] MEDS: MORPHINE 2 MG/ML SYRINGE IVP PRN ×2 (11:11→16:49)
[2018-02-25] MEDS: oxyCODONE 5 MG TABLET PO PRN ×2 (11:37→19:46)
--- NOTE | 2018-02-25 14:39 | PROVIDER PROGRESS NOTE ---
Subjective - Prog Note Date Prog Note Date: 02/25/18 - Subjective Pt reports feeling: Improved Subjective: pt report no pain when at rest, report pain 5/10 at movement of right low extremity. Pt has no other complaints. Current Medications - Current Medications Current Medications: Active Medications Albuterol/Ipratropium (Duoneb) 3 ml INH Q4HR PRN PRN Reason: Wheezing Enoxaparin Sodium (Lovenox) 30 mg SUBQ DAILY [facility] Last Admin: 02/25/18 09:10 Dose: 30 mg Famotidine (Pepcid) 20 mg PO DAILY [facility] Last Admin: 02/25/18 09:10 Dose: 20 mg Acetaminophen (Ofirmev) 100 mls @ 400 mls/hr IV Q6HR PRN PRN Reason: PAIN Last Infusion: 02/25/18 06:37 Dose: Infused Sodium Chloride (Normal Saline 0.9%) 1,000 mls @ 75 mls/hr IV .[id number] [facility] Last Admin: 02/25/18 09:09 Dose: Not Given Morphine Sulfate (Morphine) 2 mg IVP Q2H PRN PRN Reason: Pain 8 to 10 Last Admin: 02/25/18 11:11 Dose: 2 mg Nicotine (Nicoderm) 1 patch TOP DAILY [facility] Last Admin: 02/25/18 09:10 Dose: 1 patch Ondansetron HCl (Zofran Inj) 4 mg IVP Q6HR PRN PRN Reason: Nausea / Vomiting Oxycodone HCl (Roxicodone) 5 mg PO Q4HR PRN PRN Reason: Pain 5 to 7 Oxycodone HCl (Roxicodone) 10 mg PO Q4HR PRN PRN Reason: Pain 8 to 10 Last Admin: 02/25/18 11:37 Dose: 10 mg Polyethylene Glycol (Miralax) 17 gm PO DAILY [facility] Last Admin: 02/25/18 09:11 Dose: 17 gm Sodium Chloride (Normal Saline Flush 0.9%) 10 ml IVP 0100,0900,1700 [facility] Last Admin: 02/25/18 09:11 Dose: Not Given Sodium Chloride (Normal Saline Flush 0.9%) 10 ml IVP PRN PRN PRN Reason: NEEDED PER PROVIDER ORDERS Zolpidem Tartrate (Ambien) 5 mg PO QPM PRN PRN Reason: Insomnia Calcium Carbonate [Calcium] 600 mg PO BID 02/23/18 Cholecalciferol (Vitamin D3) [Vitamin D] 2,000 unit PO BID 02/23/18 Naproxen Sodium [Aleve] 220 mg PO DAILY 02/25/18 [place]-3 Fatty Acids/Fish Oil [[place]-3 Fish Oil 1,000 mg Sfgl] 1 each PO BID 11/10 Objective - Vital Signs/Intake & Output Reviewed Vital Signs: Yes Vital Signs: Vital Signs x48h Temp Pulse Resp BP Pulse Ox 02/25/18 11:18 80 16 106/50 L 94 02/25/18 08:30 37.2 C 86 17 101/68 92 Intake & Output: Intake & Output 02/22/18 02/23/18 02/24/18 02/25/18 23:59 23:59 23:59 23:59 Intake Total 1450 2142 Output Total 835 655 Balance 615 1487 - Objective General Appearance: positive: No acute distress, Alert. negative: Lethargic Eyes Bilateral: positive: Normal inspection, PERRL, No lid inflammation, Conjunctivae nml ENT: positive: ENT inspection nml, Pharynx nml, No signs of dehydration. negative: Purulent nasal drainage, Pharyngeal erythema, Oral lesions Neck: positive: Nml inspection, Thyroid nml, No JVD, Trachea midline. negative : Thyromegaly, Stiff neck, Carotid bruit, Swelling/bruising, Tracheal deviation Respiratory: positive: Chest non-tender, No respiratory distress, Breath sounds nml. negative: Wheezes, Rales, Rhonchi Cardiovascular: positive: Regular rate & rhythm, No murmur, No gallop. negative : Irregularly irregular, Extrasystoles, Tachycardia, Bradycardia, JVD present, Systolic murmur Peripheral Pulses: 2+ Radial (R), 2+ Radial (L), 2+ Dorsalis pedis (R), 2+ Dorsalis pedis (L) Abdomen: positive: Non-tender, No organomegaly, Nml bowel sounds, No distention. negative: Tenderness, Guarding, Rebound Back: positive: Nml inspection. negative: CVA tenderness (R), CVA tenderness (L ) Skin: positive: Color nml, No rash, Warm, Dry. negative: Cyanosis, Diaphoresis , Pallor Extremities: positive: Non-tender, Nml appearance. negative: Calf tenderness, Joint swelling, Genia's sign/cords Neurologic/Psychiatric: positive: Oriented x3, Motor nml. negative: Weakness, Sensory loss, Facial droop, Slurred/abnml speech, Depressed mood/affect - Lab Results Fish Bones: 02/25/18 04:56 02/25/18 04:56 Other Labs: Lab Results x24hrs 02/25/18 02/25/18 Range/Units 04:56 04:56 WBC 9.0 (4.8-10.8) x10^3/uL RBC 3.48 L (4.20-5.40) 10^6/uL Hgb 10.6 L (12.0-16.0) g/dL Hct 32.1 L (37.0-47.0) % MCV 92.4 (81.0-99.0) fL MCH 30.4 (27.0-31.0) pg MCHC 32.9 (32.0-36.0) g/dL RDW 14.7 (12.0-15.0) % Plt Count 133 (130-450) 10^3/uL MPV 9.4 (7.9-10.8) fL Neut # (Auto) 6.3 (1.5-6.6) 10^3/uL Lymph # (Auto) 1.6 (1.5-3.5) 10^3/uL [place] # (Auto) 1.0 (0.0-1.0) 10^3/uL Eos # (Auto) 0.1 (0.0-0.7) 10^3/uL Baso # (Auto) 0.1 (0.0-0.1) 10^3/uL Absolute Nucleated RBC 0.00 x10^3/uL Nucleated RBC % 0.0 /100WBC Sodium 140 (135-145) mmol/L Potassium 4.6 (3.5-5.0) mmol/L Chloride 108 (101-111) mmol/L Carbon Dioxide 26 (21-32) mmol/L Anion Gap 6.0 (6-13) BUN 23 H (6-20) mg/dL Creatinine 0.9 (0.4-1.0) mg/dL Estimated GFR (MDRD) 59 L (>89) Glucose 148 H (70-100) mg/dL Calcium 8.0 L (8.5-10.3) mg/dL Phosphorus 3.5 (2.5-4.6) mg/dL Magnesium 1.6 L (1.7-2.8) mg/dL Total Bilirubin 0.2 (0.2-1.0) mg/dL AST 21 (10-42) IU/L ALT 12 (10-60) IU/L Alkaline Phosphatase 66 (42-121) IU/L Total Protein 5.4 L (6.7-8.2) g/dL Albumin 2.6 L (3.2-5.5) g/dL Globulin 2.8 (2.1-4.2) g/dL Albumin/Globulin Ratio 0.9 L (1.0-2.2) ABX Reporting Has patient been on IV antibiotics over the past 48 hours?: No Assessment/Plan - Problem List (1) Fracture of right hip Impression: Conclusion/Plan: 02/25 day one status post of operation continue pain control PT/OT check H&H since pt had HGB drop Patient presented to the emergency department after a fall on her right hip. She presented with a externally rotated and shortened right hip. X-ray of the right hip revealed a right intertrochanteric fracture. The patient's revised cardiac risk index risk for preoperative risk shows that risk of major cardiac event is 0.4% Plan: Admit patient to medical rm N.p.o. after midnight for surgical repair of hip fracture Orthopedic consult Pain control with IV narcotics IVFs (2) Tobacco abuse Conclusion/Plan: continue Nicotine patch while patient is hospitalized advise pt quit Patient has a history of tobacco abuse. She continues to smoke 8 cigarettes a day. Appears on the chest x-ray the patient may have some COPD. The patient denies any shortness of breath but the patient's daughter does state that she is noticed that the patient does have wheezing and a chronic cough. Patient does have some scattered wheezes on examination. Plan: Nicotine patch while patient is hospitalized Patient will need incentive spirometry to help avoid development of pneumonia We will also place the patient on DuoNeb treatments as needed while she is hospitalized. Patient was counseled on adverse effects of smoking and the need to quit. (3) Osteoporosis Conclusion/Plan: continued on her vitamin D and calcium advise pt no smoke cigarettes Patient has history of osteoporosis with a bone density scan in 2016 showing the fracture risk to be high. The patient is on calcium and vitamin D but no other medications for osteoporosis. Patient will be continued on her vitamin D and calcium and was advised not to smoke cigarettes. She will need to follow-up with her PCP for any further treatment of osteoporosis. (4) Hypertension Conclusion/Plan: stable, continue vital monitor On presentation to the emergency department the patient was hypertensive with blood pressure of 186/120. This is likely secondary to pain as the patient was in significant distress when she arrived. Once patient's pain was better controlled patient's blood pressure was down to 127/97. We will need to continue to monitor the patient's blood pressure to ensure that she does not have significant hypertension. If the patient's blood pressure remains high we will need to start a antihypertensive medication. In the meantime we will try to control the patient's pain and monitor her blood pressure. (5) Hyperglycemia Conclusion/Plan: stable. On presentation to the emergency department the patient's blood glucose was elevated at 167. We did order a hemoglobin A1c which appears to be 6.1. The patient is prediabetic at this time but does not require any treatment with insulin. Qualifiers: Encounter type: initial encounter Fracture type: closed Qualified Code(s) : S72.001A - Fracture of unspecified part of neck of right femur, initial encounter for closed fracture
[2018-02-25 16:23] LABS: HGB - HEMOGLOBIN 10.3 g/dL (12.0-16.0)
[2018-02-25] MEDS ORDERED: HYDROCORTISONE 1% CREAM 28 GM TUBE TOP PRN (17:29)
[2018-02-26] MEDS: SODIUM CHLORIDE FLUSH 0.9% 10 ML SYRINGE IVP SCH ×3 (00:41→19:16)
[2018-02-26] MEDS: oxyCODONE 5 MG TABLET PO PRN ×4 (01:59→18:04)
[2018-02-26 05:09] LABS: BASOPHILS # (AUTO) 0.1 10^3/uL (0.0-0.1); BASOPHILS % (AUTO) 0.7 %; EOSINOPHILS # (AUTO) 0.2 10^3/uL (0.0-0.7); EOSINOPHILS % (AUTO) 1.8 %; HGB - HEMOGLOBIN 10.1 g/dL (12.0-16.0); LYMPHOCYTES # (AUTO) 1.6 10^3/uL (1.5-3.5); LYMPHOCYTES % (AUTO) 17.4 %; MEAN CORPUSCULAR HEMOGLOBIN 30.3 pg (27.0-31.0); MEAN CORPUSCULAR HGB CONC 32.8 g/dL (32.0-36.0); MEAN CORPUSCULAR VOLUME 92.4 fL (81.0-99.0); MEAN PLATELET VOLUME 9.8 fL (7.9-10.8); MONOCYTES % (AUTO) 10.2 %; NEUTROPHILS # (AUTO) 6.6 10^3/uL (1.5-6.6); NEUTROPHILS % (AUTO) 69.9 %; PLT - PLATELET COUNT 118 10^3/uL (130-450); RED BLOOD COUNT 3.32 10^6/uL (4.20-5.40); RED CELL DISTRIBUTION WIDTH 14.8 % (12.0-15.0); WHITE BLOOD COUNT 9.4 x10^3/uL (4.8-10.8)
[2018-02-26 05:12] LABS: ALBUMIN 2.8 g/dL (3.2-5.5); ALBUMIN/GLOBULIN RATIO 0.9 (1.0-2.2); ALKALINE PHOSPHATASE 63 IU/L (42-121); ALT ALANINE AMINOTRANSFERASE < 10 IU/L (10-60); AST ASPARTATE AMINOTRANSFERASE 20 IU/L (10-42); BILIRUBIN,TOTAL 0.3 mg/dL (0.2-1.0); BUN - BLOOD UREA NITROGEN 18 mg/dL (6-20); CALCIUM 8.1 mg/dL (8.5-10.3); CARBON DIOXIDE - CO2 23 mmol/L (21-32); CHLORIDE 109 mmol/L (101-111); CREATININE 0.9 mg/dL (0.4-1.0); GFR - MDRD 59 (>89); GLUCOSE 163 mg/dL (70-100); MAGNESIUM 1.8 mg/dL (1.7-2.8); PHOSPHORUS 2.4 mg/dL (2.5-4.6); SODIUM 138 mmol/L (135-145); TOTAL PROTEIN 5.8 g/dL (6.7-8.2)
[2018-02-26] MEDS: SODIUM CHLORIDE FLUSH 0.9% 10 ML SYRINGE IVP PRN ×2 (05:14→05:15)
[2018-02-26] MEDS: DOCUSATE SODIUM 250 MG CAPSULE PO SCH (09:14)
[2018-02-26] MEDS: POLYETHYLENE GLYCOL 3350 17 GM PACKET PO SCH (09:15)
[2018-02-26] MEDS: ENOXAPARIN 30 MG/0.3 ML SYRINGE SUBQ SCH (09:15)
[2018-02-26] MEDS: NICOTINE 14 MG PATCH TOP SCH (09:15)
[2018-02-26] MEDS: FAMOTIDINE 20 MG TABLET PO SCH (09:15)
[2018-02-26] MEDS: SENNA 8.6 MG TABLET PO SCH (09:16)
[2018-02-26] MEDS: SODIUM CHLORIDE 0.9% 1,000 ML IV SCH (10:33)
--- NOTE | 2018-02-26 11:36 | PROVIDER PROGRESS NOTE ---
Subjective - Prog Note Date Prog Note Date: 02/26/18 Prog Note Time: 11:34 - Subjective Pt reports feeling: Improved (Less pain. Up in chair) Objective - Vital Signs/Intake & Output Vital Signs: Vital Signs x48h Temp Pulse Resp BP Pulse Ox 02/26/18 08:14 37.2 C 101 H 19 121/67 90 L 02/26/18 04:58 37.1 C 60 18 105/68 93 Intake & Output: Intake & Output 02/23/18 02/24/18 02/25/18 02/26/18 23:59 23:59 23:59 23:59 Intake Total 1450 3089 1180 Output Total 835 805 675 Balance 615 2284 505 - Lab Results Fish Bones: 02/26/18 04:20 02/26/18 04:20 Other Labs: Lab Results x24hrs 02/26/18 02/26/18 02/25/18 Range/Units 04:20 04:20 16:11 WBC 9.4 (4.8-10.8) x10^3/uL RBC 3.32 L (4.20-5.40) 10^6/uL Hgb 10.1 L 10.3 L (12.0-16.0) g/dL Hct 30.7 L 31.3 L (37.0-47.0) % MCV 92.4 (81.0-99.0) fL MCH 30.3 (27.0-31.0) pg MCHC 32.8 (32.0-36.0) g/dL RDW 14.8 (12.0-15.0) % Plt Count 118 L (130-450) 10^3/uL MPV 9.8 (7.9-10.8) fL Neut # (Auto) 6.6 (1.5-6.6) 10^3/uL Lymph # (Auto) 1.6 (1.5-3.5) 10^3/uL [place] # (Auto) 1.0 (0.0-1.0) 10^3/uL Eos # (Auto) 0.2 (0.0-0.7) 10^3/uL Baso # (Auto) 0.1 (0.0-0.1) 10^3/uL Absolute Nucleated RBC 0.00 x10^3/uL Nucleated RBC % 0.0 /100WBC Sodium 138 (135-145) mmol/L Potassium 4.2 (3.5-5.0) mmol/L Chloride 109 (101-111) mmol/L Carbon Dioxide 23 (21-32) mmol/L Anion Gap 6.0 (6-13) BUN 18 (6-20) mg/dL Creatinine 0.9 (0.4-1.0) mg/dL Estimated GFR (MDRD) 59 L (>89) Glucose 163 H (70-100) mg/dL Calcium 8.1 L (8.5-10.3) mg/dL Phosphorus 2.4 L (2.5-4.6) mg/dL Magnesium 1.8 (1.7-2.8) mg/dL Total Bilirubin 0.3 (0.2-1.0) mg/dL AST 20 (10-42) IU/L ALT < 10 L (10-60) IU/L Alkaline Phosphatase 63 (42-121) IU/L Total Protein 5.8 L (6.7-8.2) g/dL Albumin 2.8 L (3.2-5.5) g/dL Globulin 3.0 (2.1-4.2) g/dL Albumin/Globulin Ratio 0.9 L (1.0-2.2) - Other Results/Comments Other Results/Comments: EXAM: Dressing intact. Mild pain with hip motion. UP in chair in mild pain. Moves toes well. Sensation intact. Assessment/Plan - Problem List (1) Fracture of right hip Impression: Satis post op PLAN: To SNF in AM. PT - WBAT on right . RTC in 2 weeks for angelica out and XR. Qualifiers: Encounter type: initial encounter Fracture type: closed Qualified Code(s) : S72.001A - Fracture of unspecified part of neck of right femur, initial encounter for closed fracture
--- NOTE | 2018-02-26 14:30 | PROVIDER PROGRESS NOTE ---
Subjective - Prog Note Date Prog Note Date: 02/26/18 - Subjective Pt reports feeling: Improved Subjective: pt state her hip pain is better. no fever, chill, cough, SOB, CP, abdominal pain. Current Medications - Current Medications Current Medications: Active Medications Docusate Sodium (Colace 250mg Capsule) 250 - 500 mg PO DAILY [facility] Last Admin: 02/26/18 09:14 Dose: 250 mg Enoxaparin Sodium (Lovenox) 30 mg SUBQ DAILY [facility] Last Admin: 02/26/18 09:15 Dose: 30 mg Famotidine (Pepcid) 20 mg PO DAILY [facility] Last Admin: 02/26/18 09:15 Dose: 20 mg Hydrocortisone (Hydrocortisone) 1 applic TOP BID PRN PRN Reason: ITCHING Last Admin: 02/26/18 03:27 Dose: 1 applic Acetaminophen (Ofirmev) 100 mls @ 400 mls/hr IV Q6HR PRN PRN Reason: PAIN Last Infusion: 02/25/18 06:37 Dose: Infused Sodium Chloride (Normal Saline 0.9%) 1,000 mls @ 75 mls/hr IV .[id number] [facility] Last Admin: 02/26/18 10:33 Dose: 75 mls/hr Morphine Sulfate (Morphine) 2 mg IVP Q2H PRN PRN Reason: Pain 8 to 10 Last Admin: 02/25/18 16:49 Dose: 2 mg Nicotine (Nicoderm) 1 patch TOP DAILY [facility] Last Admin: 02/26/18 09:15 Dose: 1 patch Ondansetron HCl (Zofran Inj) 4 mg IVP Q6HR PRN PRN Reason: Nausea / Vomiting Oxycodone HCl (Roxicodone) 5 mg PO Q4HR PRN PRN Reason: Pain 5 to 7 Last Admin: 02/26/18 13:57 Dose: 5 mg Oxycodone HCl (Roxicodone) 10 mg PO Q4HR PRN PRN Reason: Pain 8 to 10 Last Admin: 02/26/18 10:32 Dose: 10 mg Polyethylene Glycol (Miralax) 17 gm PO DAILY [facility] Last Admin: 02/26/18 09:15 Dose: 17 gm Senna (Senokot) 8.6 - 17.2 mg PO DAILY [facility] Last Admin: 02/26/18 09:16 Dose: Not Given Sodium Chloride (Normal Saline Flush 0.9%) 10 ml IVP 0100,0900,1700 DORIS Last Admin: 02/26/18 09:16 Dose: Not Given Sodium Chloride (Normal Saline Flush 0.9%) 10 ml IVP PRN PRN PRN Reason: NEEDED PER PROVIDER ORDERS Last Admin: 02/26/18 05:15 Dose: 10 ml Zolpidem Tartrate (Ambien) 5 mg PO QPM PRN PRN Reason: Insomnia Calcium Carbonate [Calcium] 600 mg PO BID 02/23/18 Cholecalciferol (Vitamin D3) [Vitamin D] 2,000 unit PO BID 02/23/18 Naproxen Sodium [Aleve] 220 mg PO DAILY 02/25/18 [place]-3 Fatty Acids/Fish Oil [[place]-3 Fish Oil 1,000 mg Sfgl] 1 each PO BID 11/10 Objective - Vital Signs/Intake & Output Reviewed Vital Signs: Yes Vital Signs: Vital Signs x48h Temp Pulse Pulse Pulse Resp BP BP 02/26/18 13:51 36.7 C 89 18 114/80 02/26/18 10:03 97 80 113/61 02/26/18 08:14 37.2 C 101 H 19 121/67 BP Pulse Ox 02/26/18 13:51 92 02/26/18 10:03 106/50 L 02/26/18 08:14 90 L Intake & Output: Intake & Output 02/23/18 02/24/18 02/25/18 02/26/18 23:59 23:59 23:59 23:59 Intake Total 1450 3089 1420 Output Total 687 809 8186 Balance 615 2284 395 - Objective General Appearance: positive: No acute distress, Alert. negative: Lethargic Eyes Bilateral: positive: Normal inspection, PERRL, No lid inflammation, Conjunctivae nml ENT: positive: ENT inspection nml, Pharynx nml, No signs of dehydration. negative: Purulent nasal drainage, Pharyngeal erythema, Oral lesions Neck: positive: Nml inspection, Thyroid nml, No JVD, Trachea midline. negative : Thyromegaly, Lymphadenopathy (R), Lymphadenopathy (L), Stiff neck, Carotid bruit, Swelling/bruising, Tracheal deviation Respiratory: positive: Chest non-tender, No respiratory distress, Breath sounds nml. negative: Wheezes, Rales, Rhonchi Cardiovascular: positive: Regular rate & rhythm, No murmur, No gallop. negative : Irregularly irregular, Extrasystoles, Tachycardia, Bradycardia, Systolic murmur, Diastolic murmur Peripheral Pulses: 2+ Radial (R), 2+ Radial (L), 2+ Dorsalis pedis (R), 2+ Dorsalis pedis (L) Abdomen: positive: Non-tender, No organomegaly, Nml bowel sounds, No distention. negative: Tenderness, Guarding, Rebound Back: positive: Nml inspection. negative: CVA tenderness (R), CVA tenderness (L ) Skin: positive: Color nml, No rash, Warm, Dry. negative: Cyanosis, Diaphoresis , Pallor Extremities: positive: Non-tender, Nml appearance. negative: Calf tenderness, Joint swelling, Genia's sign/cords Neurologic/Psychiatric: positive: Oriented x3, Sensation nml, Mood/affect nml. negative: Weakness, Sensory loss, Facial droop, Slurred/abnml speech, Depressed mood/affect - Lab Results Fish Bones: 02/26/18 04:20 02/26/18 04:20 Other Labs: Lab Results x24hrs 02/26/18 02/26/18 02/25/18 Range/Units 04:20 04:20 16:11 WBC 9.4 (4.8-10.8) x10^3/uL RBC 3.32 L (4.20-5.40) 10^6/uL Hgb 10.1 L 10.3 L (12.0-16.0) g/dL Hct 30.7 L 31.3 L (37.0-47.0) % MCV 92.4 (81.0-99.0) fL MCH 30.3 (27.0-31.0) pg MCHC 32.8 (32.0-36.0) g/dL RDW 14.8 (12.0-15.0) % Plt Count 118 L (130-450) 10^3/uL MPV 9.8 (7.9-10.8) fL Neut # (Auto) 6.6 (1.5-6.6) 10^3/uL Lymph # (Auto) 1.6 (1.5-3.5) 10^3/uL [place] # (Auto) 1.0 (0.0-1.0) 10^3/uL Eos # (Auto) 0.2 (0.0-0.7) 10^3/uL Baso # (Auto) 0.1 (0.0-0.1) 10^3/uL Absolute Nucleated RBC 0.00 x10^3/uL Nucleated RBC % 0.0 /100WBC Sodium 138 (135-145) mmol/L Potassium 4.2 (3.5-5.0) mmol/L Chloride 109 (101-111) mmol/L Carbon Dioxide 23 (21-32) mmol/L Anion Gap 6.0 (6-13) BUN 18 (6-20) mg/dL Creatinine 0.9 (0.4-1.0) mg/dL Estimated GFR (MDRD) 59 L (>89) Glucose 163 H (70-100) mg/dL Calcium 8.1 L (8.5-10.3) mg/dL Phosphorus 2.4 L (2.5-4.6) mg/dL Magnesium 1.8 (1.7-2.8) mg/dL Total Bilirubin 0.3 (0.2-1.0) mg/dL AST 20 (10-42) IU/L ALT < 10 L (10-60) IU/L Alkaline Phosphatase 63 (42-121) IU/L Total Protein 5.8 L (6.7-8.2) g/dL Albumin 2.8 L (3.2-5.5) g/dL Globulin 3.0 (2.1-4.2) g/dL Albumin/Globulin Ratio 0.9 L (1.0-2.2) ABX Reporting Has patient been on IV antibiotics over the past 48 hours?: No Assessment/Plan - Problem List (1) Fracture of right hip Impression: Conclusion/Plan: 02/26 pt report her hip pain is better continue PT/OT, pain control plan D/C tomorrow 02/25 day one status post of operation continue pain control PT/OT check H&H since pt had HGB drop Patient presented to the emergency department after a fall on her right hip. She presented with a externally rotated and shortened right hip. X-ray of the right hip revealed a right intertrochanteric fracture. The patient's revised cardiac risk index risk for preoperative risk shows that risk of major cardiac event is 0.4% Plan: Admit patient to medical rm N.p.o. after midnight for surgical repair of hip fracture Orthopedic consult Pain control with IV narcotics IVFs (2) Tobacco abuse Conclusion/Plan: continue Nicotine patch while patient is hospitalized advise pt quit Patient has a history of tobacco abuse. She continues to smoke 8 cigarettes a day. Appears on the chest x-ray the patient may have some COPD. The patient denies any shortness of breath but the patient's daughter does state that she is noticed that the patient does have wheezing and a chronic cough. Patient does have some scattered wheezes on examination. Plan: Nicotine patch while patient is hospitalized Patient will need incentive spirometry to help avoid development of pneumonia We will also place the patient on DuoNeb treatments as needed while she is hospitalized. Patient was counseled on adverse effects of smoking and the need to quit. (3) Osteoporosis Conclusion/Plan: continued on her vitamin D and calcium advise pt no smoke cigarettes Patient has history of osteoporosis with a bone density scan in 2016 showing the fracture risk to be high. The patient is on calcium and vitamin D but no other medications for osteoporosis. Patient will be continued on her vitamin D and calcium and was advised not to smoke cigarettes. She will need to follow-up with her PCP for any further treatment of osteoporosis. (4) Hypertension Conclusion/Plan: stable, continue vital monitor On presentation to the emergency department the patient was hypertensive with blood pressure of 186/120. This is likely secondary to pain as the patient was in significant distress when she arrived. Once patient's pain was better controlled patient's blood pressure was down to 127/97. We will need to continue to monitor the patient's blood pressure to ensure that she does not have significant hypertension. If the patient's blood pressure remains high we will need to start a antihypertensive medication. In the meantime we will try to control the patient's pain and monitor her blood pressure. (5) Hyperglycemia Conclusion/Plan: stable, controlled. A1C 6.1 stable. Qualifiers: Encounter type: initial encounter Fracture type: closed Qualified Code(s) : S72.001A - Fracture of unspecified part of neck of right femur, initial encounter for closed fracture
[2018-02-26] MEDS: ACETAMINOPHEN 1,000 MG/100 ML 100 ML IV PRN (18:04)
[2018-02-27] MEDS: oxyCODONE 5 MG TABLET PO PRN ×2 (00:54→10:55)
[2018-02-27] MEDS: SODIUM CHLORIDE FLUSH 0.9% 10 ML SYRINGE IVP SCH ×2 (00:56→08:23)
[2018-02-27] MEDS: POLYETHYLENE GLYCOL 3350 17 GM PACKET PO SCH (08:14)
[2018-02-27] MEDS: DOCUSATE SODIUM 250 MG CAPSULE PO SCH (08:15)
[2018-02-27] MEDS: SENNA 8.6 MG TABLET PO SCH (08:15)
[2018-02-27] MEDS: FAMOTIDINE 20 MG TABLET PO SCH (08:16)
[2018-02-27] MEDS: NICOTINE 14 MG PATCH TOP SCH (08:16)
[2018-02-27] MEDS: ENOXAPARIN 30 MG/0.3 ML SYRINGE SUBQ SCH (08:23)
[2018-02-27 08:57] LABS: BASOPHILS # (AUTO) 0.1 10^3/uL (0.0-0.1); BASOPHILS % (AUTO) 0.7 %; EOSINOPHILS # (AUTO) 0.2 10^3/uL (0.0-0.7); EOSINOPHILS % (AUTO) 1.9 %; HGB - HEMOGLOBIN 9.6 g/dL (12.0-16.0); LYMPHOCYTES # (AUTO) 1.5 10^3/uL (1.5-3.5); LYMPHOCYTES % (AUTO) 18.3 %; MEAN CORPUSCULAR HEMOGLOBIN 30.5 pg (27.0-31.0); MEAN CORPUSCULAR HGB CONC 33.7 g/dL (32.0-36.0); MEAN CORPUSCULAR VOLUME 90.4 fL (81.0-99.0); MEAN PLATELET VOLUME 9.4 fL (7.9-10.8); MONOCYTES # (AUTO) 0.8 10^3/uL (0.0-1.0); MONOCYTES % (AUTO) 9.7 %; NEUTROPHILS # (AUTO) 5.6 10^3/uL (1.5-6.6); NEUTROPHILS % (AUTO) 69.4 %; PLT - PLATELET COUNT 129 10^3/uL (130-450); RED BLOOD COUNT 3.14 10^6/uL (4.20-5.40); RED CELL DISTRIBUTION WIDTH 14.3 % (12.0-15.0); WHITE BLOOD COUNT 8.1 x10^3/uL (4.8-10.8)
[2018-02-27 09:05] LABS: ALBUMIN 2.7 g/dL (3.2-5.5); ALBUMIN/GLOBULIN RATIO 0.8 (1.0-2.2); ALKALINE PHOSPHATASE 69 IU/L (42-121); ALT ALANINE AMINOTRANSFERASE < 10 IU/L (10-60); AST ASPARTATE AMINOTRANSFERASE 20 IU/L (10-42); BILIRUBIN,TOTAL 0.7 mg/dL (0.2-1.0); BUN - BLOOD UREA NITROGEN 17 mg/dL (6-20); CALCIUM 8.7 mg/dL (8.5-10.3); CARBON DIOXIDE - CO2 25 mmol/L (21-32); CHLORIDE 107 mmol/L (101-111); CREATININE 0.8 mg/dL (0.4-1.0); GFR - MDRD 68 (>89); GLUCOSE 161 mg/dL (70-100); SODIUM 138 mmol/L (135-145)
--- NOTE | 2018-02-27 11:10 | Discharge Plan ---
"Discharge Plan for SNF / [facility] - DC Plan and Transition Orders Disposition: 03 SNF DC/Xfer Condition: Stable SNF Transition Orders: Admit to: [[facility]] under the care of [Doctor Amrit Akbar] Discharge Diagnosis: [right hip fracture, status post right hip repair, HTN, current tobacco smoker, osteoporosis] Medicare Certification: I certify that Post Hospital snf care is medically necessary on a continuing basis for any of the conditions for which she/he is receiving care during hospitalization. Notify PCP of admission and forward orders to primary provider for signature. Weight on admission and [64.5 kg]. Call PCP immediately if weight increases by [4] pounds or if patient develops dyspnea, chest pain/tightness or edema. House Bowel Program: [Yes] If no BM after 2 days, nurse may give M.O.M. 30ml PO PRN and /or ducolax Supp 1 OH and /or DEYANIRA 250mg P.O., and/or senna 1-2 tabs PO. On day 3 nurse may give repeat above order until residents constipation is resolved. Immunizations: Annual Influenza Vaccine: [Yes]. (between Apr 26 and November 23.) Unless allergy or already given Two-Step PPD: [Yes] per [facility] [id number] or appropriate documentation of approved exceptions Treatments & Other Orders: [Pt may follow up her PCP as pt arrival at [facility], continue PT/OT, follow up Dr. Jason Washburn at [facility] in two weeks for angelica out and Xray.] Oxygen Orders: [PRN] Lab Tests or X-Rays Orders: [follow up PCP as needed] Orthopedic Orders: [continue PT/OT, follow up Dr. Jason Washburn at [facility] in two weeks for angelica out and Xray]. Medications: PLEASE REFER TO THE DISCHARGE MEDICATION LIST. Insulin Orders? [No] Diagnosis: Diabetes Initiate hypo and hyperglycemia protocols for BG <70 and BG >375. May check BG prn for signs/symptoms of dysglycemia. Frequency of BG checks: [AC/Meal/HS] Basal Insulin: [] Lantus 100 units / ml inject subq as follows: [] [] Other: [] Correction Insulin: - Select the type of insulin below [Choose: Novolog/Humalog]100 units /ml insulin inject subq per orders indicate below [] LOW DOSE [] MODERATE DOSE [] MODERATE/HIGH DOSE [] HIGH DOSE GB UNITS GB UNITS GB UNITS GB UNITS 61-140 0 UNITS 61-140 0 UNITS 61-140 0 UNITS 61-140 0 UNITS 141-175 1 UNITS 141-175 1 UNITS 141-175 2 UNITS 141-175 3 UNITS 176-225 2 UNITS 176-225 3 UNITS 176-225 4 UNITS 176-225 5 UNITS 226-275 3 UNITS 226-275 5 UNITS 226-275 6 UNITS 226-275 7 UNITS 276-325 4 UNITS 276-325 7 UNITS 276-325 8 UNITS 276-325 9 UNITS 326-375 5 UNITS 326-375 9 UNITS 326-375 10 UNITS 326-375 11 UNITS >375 CONTACT MD >375 CONTACT MD >375 CONTACT MD >375 CONTACT MD Custom Dosing: [Choose: None/Novolog/Humalog] 100 units/ml Insulin inject subq as follows: GB Units 61-140 [] Units 141-175 [] Units 176-225 [] Units 226-275 [] Units 276-325 []Units 326-375 [] Units >375 Contact MD Allergies and Adverse Reactions: Allergies Allergy/AdvReac Type Severity Reaction Status Date / Time No Known Drug Allergies Allergy Verified 02/23/18 21:41 - Medications New Prescriptions: oxyCODONE [Roxicodone] 5 mg PO Q4HR PRN #20 tablet PRN Reason: Pain 5 to 7 Enoxaparin [Lovenox] 30 mg SUBQ DAILY #14 syringe - Diet Type: Geriatric Texture: Regular Liquids: Thin May have monthly special meal: Yes - Therapies | Activity Therapy: Evaluation | Treat if indicated: PT, OT Rehabilitation Potential: Maximize functional status Activity: Activity as Tolerated Additional Instructions: Pt may follow up her PCP as pt arrival at [facility], continue PT/OT, follow up Dr. Jason Washburn at [facility] in two weeks for angelica out and Xray"
--- NOTE | 2018-02-27 11:30 | DISCHARGE SUMMARY ---
"Discharge Summary Discharge Date: 02/27/18 Discharging Provider: MANNING Primary Care Provider: Condition at Discharge: Stable Discharge Disposition: 03 SNF DC/Xfer Discharge Facility Name: [facility] - DIAGNOSES Admission Diagnoses: (1) Fracture of right hip (2) Tobacco abuse (3) Osteoporosis (4) Hypertension (5) Hyperglycemia Discharge Diagnoses with Status of Each Condition: (1) Fracture of right hip pt had hip repair by orthopedics, evaluated and treated by PT/OT, recommended to SNF for continuing healing, recovery and strength training. (2) Tobacco abuse advise pt quit (3) Osteoporosis stable, continue home regimen, and PCP management (4) Hypertension stable, continue PCP management (5) Hyperglycemia stable, continue PCP management - HPI History of Present Illness: refer from Dr. Rodriguez's HPI for pt as the following: Patient is a very pleasant 87-year-old female with a past medical history significant for TIA and osteoporosis who presented to the emergency department with a chief complaint of right hip pain. The patient states that she was in her bedroom trying to close a window when she turned to her right and the next thing she knows she had fallen onto her right hip. She states that she immediately felt excruciating pain in her right hip and was unable to get up. The patient states she lives alone but has a life alert around her neck and she pressed the life alert button. She states that she has had falls in the past including a fall in October when she fell in the yard while she was doing yard work and landed on her buttocks. The patient has had multiple surgeries in the past for previous fractures. She has had ankle surgery, left elbow surgery and surgery on her right arm for a humeral fracture. The patient states that she is a smoker and smokes about 8 cigarettes a day. She denies any worsening shortness of breath recently, chest pain, orthopnea or any increased lower extremity swelling. She does not take any prescription medications. She does not believe she has any kidney issues. Patient denies any headaches, dizziness, blurred vision, runny nose, sore throat , nasal congestion, fevers, chills, difficulty swallowing, chest pain, shortness of air, orthopnea, PND, increased lower extremity swelling, abdominal pain, nausea, vomiting, diarrhea, constipation, urinary urgency, urinary frequency, dysuria, back pain, neck stiffness, changes in her appetite, recent unintentional weight loss, skin changes, skin rashes, night sweats, hair loss, polyuria, polydipsia, or any focal neurologic deficits. On presentation to the emergency department the patient was afebrile and very hypertensive and is significant amount of pain. In route to the emergency department the patient had received a dose of fentanyl and on presentation her oxygen saturation was in the low 90s therefore she was placed on 2 L of oxygen but did not appear to be in any respiratory distress. The patient did undergo routine lab work which revealed a creatinine of 1.1 without any previous baseline and a glucose of 167 without any previous baseline. The patient's right leg appeared to be externally rotated and shortened concerning for hip fracture therefore a x-ray of the right hip was ordered by the emergency room physician. The x-ray of the right hip revealed a right intertrochanteric fracture. The patient also underwent a chest x-ray which did not show any acute infiltrates but did show increased lung volumes consistent with COPD. The patient also underwent a right knee x-ray which showed osteopenia and mild degenerative changes but no acute fracture. The emergency room physician spoke with the orthopedic surgeon program coordinator executive education who asked that the hospitalist team admit the patient and that he would consult for surgical repair of the right hip. Patient was admitted to the medical rm. - CONSULTS | PROCEDURES Consultations: Dr. Michel Procedures: right hip repair - ALLERGIES Allergies/Adverse Reactions: Allergies Allergy/AdvReac Type Severity Reaction Status Date / Time No Known Drug Allergies Allergy Verified 02/23/18 21:41 - MEDICATIONS Home Medications: Ambulatory Orders Medication Instructions Recorded Confirmed Calcium Carbonate [Calcium] 600 mg PO BID 02/23/18 02/25/18 Cholecalciferol (Vitamin D3) 2,000 unit PO BID 02/23/18 02/25/18 [Vitamin D3] Naproxen Sodium [Aleve] 220 mg PO DAILY 02/25/18 02/25/18 [place]-3 Fatty Acids/Fish Oil 1 each PO BID 02/25/18 02/25/18 [[place]-3 Fish Oil 1,000 mg Sfgl] Enoxaparin [Lovenox] 30 mg SUBQ DAILY #14 syringe 02/27/18 oxyCODONE [Roxicodone] 5 mg PO Q4HR PRN #20 tablet 02/27/18 - PHYSICAL EXAM AT DISCHARGE General Appearance: positive: No acute distress, Alert. negative: Lethargic Eyes Bilateral: positive: Normal inspection, PERRL, No lid inflammation, Conjunctivae nml ENT: positive: ENT inspection nml, Pharynx nml, No signs of dehydration. negative: Purulent nasal drainage, Pharyngeal erythema, Oral lesions Neck: positive: Nml inspection, Thyroid nml, No JVD, Trachea midline. negative : Thyromegaly, Lymphadenopathy (R), Lymphadenopathy (L), Stiff neck, Carotid bruit, Swelling/bruising, Tracheal deviation Respiratory: positive: Chest non-tender, No respiratory distress, Breath sounds nml. negative: Wheezes, Rales, Rhonchi Cardiovascular: positive: Regular rate & rhythm, No murmur, No gallop. negative : Irregularly irregular, Extrasystoles, Tachycardia, Bradycardia, Systolic murmur, Diastolic murmur Peripheral Pulses: positive: 2+ Abdomen: positive: Non-tender, No organomegaly, Nml bowel sounds, No distention. negative: Tenderness, Guarding, Rebound Back: positive: Nml inspection. negative: CVA tenderness (R), CVA tenderness (L ) Skin: positive: Color nml, No rash, Warm, Dry. negative: Cyanosis, Diaphoresis , Pallor Extremities: positive: Non-tender, Full ROM, Nml appearance. negative: Calf tenderness, Joint swelling, Genia's sign/cords Neurologic/Psychiatric: positive: Oriented x3, Motor nml, Sensation nml, Mood/ affect nml. negative: Weakness, Sensory loss, Facial droop, Slurred/abnml speech, Depressed mood/affect - LABS Result Diagrams: 02/27/18 08:44 02/27/18 08:44 - FOLLOW UP Follow Up: Pt may follow up her PCP as pt arrival at [facility], continue PT/OT, follow up Dr. Jason Washburn at [facility] in two weeks for angelica out and Xray - TIME SPENT Time Spent in Discharge (Minutes): 50"
[2018-02-27 12:30] VITALS: BP 115/70
== END 2018-02-27 13:12 | DRG 482 ==
LOC: EDUNIT# → ED 21:34 → MS3 22:19
PROVIDERS: ADMIT Internal Medicine; ATTEND Nurse Practitioner Gerontology
PROC: 0QS636Z Reposition Right Upper Femur with Intramedullary Internal Fixation Device, Percutaneous Approach (ICD-10-PCS; principal; 2018-02-24 09:30)
DX: S72.141A Displaced intertrochanteric fracture of right femur, initial encounter for closed fracture (principal); J44.9 Chronic obstructive pulmonary disease, unspecified; F17.210 Nicotine dependence, cigarettes, uncomplicated; I10 Essential (primary) hypertension; R73.03 Prediabetes; M81.0 Age-related osteoporosis without current pathological fracture; M25.561 Pain in right knee; M85.861 Other specified disorders of bone density and structure, right lower leg; M17.11 Unilateral primary osteoarthritis, right knee; W01.0XXA Fall on same level from slipping, tripping and stumbling without subsequent striking against object, initial encounter; Y93.E9 Activity, other interior property and clothing maintenance; Y92.003 Bedroom of unspecified non-institutional (private) residence as the place of occurrence of the external cause; R32 Unspecified urinary incontinence; Z66 Do not resuscitate; Z87.81 Personal history of (healed) traumatic fracture; Z91.81 History of falling; Z87.718 Personal history of other specified (corrected) congenital malformations of genitourinary system; Z86.73 Personal history of transient ischemic attack (TIA), and cerebral infarction without residual deficits
CPT/HCPCS: 36415; 51703; 71045; 80053; 82803; 83036; 83690; 83735; 84100; 85014; 85018; 85025; 85610; 85730; 86850; 86900; 86901; 93005; 99283; 99284

== ENCOUNTER 2019-01-27 20:18 | Outpatient (CLI) | payer MEDICARE ==
--- NOTE | 2019-01-27 23:23 | Ultrasound Report ---
Reason: PAIN IN RIGHT LOWER LEG Procedure Date: 01/27/2019 Accession Number: [id number] / [id number] Procedure: US - Duplex Ext Veins Right CPT Code: FULL RESULT: EXAM: RIGHT LOWER EXTREMITY VENOUS ULTRASOUND. EXAM DATE: 01/27/2019 09:19 PM. CLINICAL HISTORY: Pain in right lower leg. COMPARISON: None. TECHNIQUE: Real-time sonographic vascular imaging was performed by the golf club repairer through the lower extremity utilizing both color-flow and Doppler spectral analysis. Multiple patient service representative static images were saved for review. FINDINGS: Common Femoral Vein (CFV): Normal. CFV-GSV Junction: Normal. Profunda Femoral Vein (PFV): Normal. Femoral Vein (FV) Prox: Normal. Femoral Vein (FV) Mid: Normal. Femoral Vein (FV) Dist: Normal. Popliteal Vein: Normal. Posterior Tibial Veins: Normal. Peroneal Veins: Normal. Contralateral Side CFV: Normal. Other: None. IMPRESSION: No evidence for deep venous thrombosis. RADIA The call report notification system was initiated by Dr. Jonh Downey at 11:22 PM on 01/27/2019.
== END 2019-01-27 20:19 | disposition home or self-care (01) ==
LOC: DI 20:18
PROVIDERS: ATTEND Nurse Practitioner Family
DX: M79.661 Pain in right lower leg (principal)